=== PATIENT | female | born 1950 | race Caucasian/White ===

== ENCOUNTER → 2016-08-20 | Outpatient (CLI) | payer OTHER | LOC: CIMAGING 12:11 | PROVIDERS: ATTEND Internal Medicine Hematology & Oncology | DX: Z12.31 Encounter for screening mammogram for malignant neoplasm of breast (principal) | CPT/HCPCS: G0202 ==

== ENCOUNTER → 2016-09-10 | Outpatient (CLI) | payer OTHER | LOC: CIMAGING 12:55 | PROVIDERS: ATTEND Internal Medicine Hematology & Oncology | DX: Z03.89 Encounter for observation for other suspected diseases and conditions ruled out (principal) | CPT/HCPCS: 76641; G0206 ==

== ENCOUNTER → 2016-10-12 | Outpatient (CLI) | payer OTHER ==
[~2016-10-12] MED LIST: GADOBUTROL 10 ML VIAL IVP ONE
== END ==
LOC: FIMAGING 14:01
PROVIDERS: ATTEND Internal Medicine Hematology & Oncology
DX: R92.8 Other abnormal and inconclusive findings on diagnostic imaging of breast (principal)
CPT/HCPCS: 0159T; A9585; C8908